=== PATIENT | male | born 1950 | race Caucasian/White ===

== ENCOUNTER 2020-05-24 08:50 | Inpatient (IN) ==
[2020-05-24] MEDS ORDERED: SODIUM CHLORIDE 0.9% 1,000 ML IV STA (09:09)
[2020-05-24 09:21] LABS: Basophils # 0.1 10*3/uL (0.0-0.2); Basophils % 0.7 % (0.0-0.8); Eosinophils % 0.3 % (0.00-10.9); Hematocrit 48.4 VOL% (42.0-52.0); Hemoglobin 16.8 GM/DL (14.0-18.0); Immature Granulocytes % 0.4 %; Immature Granulocytes Absolute 0.04 #; Lymphocytes # 2.7 10*3/uL (1.4-4.0); Lymphocytes % 23.8 % (21.2-54.2); Mean Corpuscular HGB Conc 34.7 GM/DL (32-36); Mean Corpuscular Volume 89.6 FL (87-102); Mean Platelet Volume 11.3 FL (9.6-12.0); Monocytes % 5.6 % (1.7-12.7); Neutrophils % 69.2 % (38.7-73.9); Platelet Count 167 T/CUMM (130-400); Red Cell Distribution Width 13.4 % (9.3-17.3); White Blood Count 11.3 T/CUMM (4-12)
[2020-05-24 09:48] LABS: Apearance,Urine CLEAR (Clear); Bilirubin,Urine Negative (Negative); Blood, Urine Negative (Negative); Glucose,Urine (UA) Negative (Negative); Ketones,Urine Negative (Negative); Mucus,Urine Occasional /LPF (Occasional); Nitrite,Urine Negative (Negative); Protein,Urine Negative; RBC,Urine 3 /HPF (0-4); Urine Color Amber (Yellow); Urine Specific Gravity 1.019 (1.001-1.035)
[2020-05-24 09:53] LABS: PT Patient Result 10.6 SECS (9.8-11.9); Partial Thromboplastin Time 23.1 SECS (23.9-33.8)
[2020-05-24 09:55] LABS: Alanine Aminotransferase 97 U/L (16-61); Albumin 3.7 G/DL (3.4-5.0); Alkaline Phosphatase 55 U/L (45-117); Aspartate Amino Transferase 104 U/L (0-37); Blood Urea Nitrogen 11 MG/DL (7-18); Calcium 9.3 MG/DL (8.5-10.1); Estimated Glom Filtration Rate 111 ML/MIN; Glucose 130 MG/DL (74-106); Total Protein 8.3 G/DL (6.4-8.3)
[2020-05-24] MEDS ORDERED: ALTEPLASE IV ONE ×2 (10:07)
[2020-05-24] MEDS ORDERED: LABETALOL 20 MG/4 ML SYRINGE IV PRN (12:14)
[2020-05-24] MEDS ORDERED: niCARdipine INJ 25 MG in SODIUM CHLORIDE 0.9% 240 ML IV PRN (12:14)
[2020-05-24] MEDS ORDERED: cloNIDine 0.1 MG/24 HR PATCH TRANSDERM SCH (12:30)
[2020-05-24] MEDS: SODIUM CHLORIDE 0.9% 1,000 ML IV SCH ×2 (13:00→21:05)
[2020-05-24 14:16] LABS: Barbiturates Screen,Urine Negative (Negative); Benzodiazepines Screen,Urine Negative (Negative); Cannabinoid Screen,Urine Negative (Negative); Opiate Screen,Urine Negative (Negative); Phencyclidine Screen,Urine Negative (Negative)
[2020-05-24] MEDS: ATORVASTATIN 40 MG TABLET PO SCH (20:13)
[2020-05-25 05:17] LABS: Basophils # 0.1 10*3/uL (0.0-0.2); Basophils % 0.6 % (0.0-0.8); Eosinophils # 0.1 10*3/uL (0.0-0.87); Eosinophils % 0.3 % (0.00-10.9); Hematocrit 45.7 VOL% (42.0-52.0); Hemoglobin 15.6 GM/DL (14.0-18.0); Immature Granulocytes % 0.3 %; Immature Granulocytes Absolute 0.04 #; Lymphocytes # 5.9 10*3/uL (1.4-4.0); Lymphocytes % 41.3 % (21.2-54.2); Mean Corpuscular HGB Conc 34.1 GM/DL (32-36); Mean Corpuscular Volume 90.3 FL (87-102); Mean Platelet Volume 10.8 FL (9.6-12.0); Monocytes % 8.2 % (1.7-12.7); Neutrophils % 49.3 % (38.7-73.9); Platelet Count 172 T/CUMM (130-400); Red Blood Count 5.06 MC/CUMM (3.8-5.5); Red Cell Distribution Width 13.5 % (9.3-17.3); White Blood Count 14.4 T/CUMM (4-12)
[2020-05-25 05:38] LABS: Blood Urea Nitrogen 11 MG/DL (7-18); Calcium 8.8 MG/DL (8.5-10.1); Estimated Glom Filtration Rate 111 ML/MIN; Glucose 105 MG/DL (74-106); Osmolality,Calculated 275.5 MOS/KG (273-304); Troponin I < 0.015 NG/ML (0.00-0.045)
[2020-05-25] MEDS: IPRATROPIUM 500 MCG/2.5 ML NEB RESP TX SCH ×4 (07:15→19:05)
[2020-05-25] MEDS: CLOPIDOGREL 75 MG TABLET PO SCH (09:43)
[2020-05-25] MEDS: ASPIRIN EC 81 MG TABLET PO SCH (13:22)
[2020-05-25 14:07] LABS: Risk Ratio 7.66; VLDL CHOLESTEROL 24.8 MG/DL
[2020-05-25 14:14] LABS: Thyroid Stimulating Hormone 3.14 uIU/ml (0.358-3.74)
[2020-05-25] MEDS: amLODIPine 5 MG TABLET PO SCH (16:22)
[2020-05-25] MEDS: SODIUM CHLORIDE 0.9% 1,000 ML IV SCH (16:22)
[2020-05-25] MEDS: ATORVASTATIN 40 MG TABLET PO SCH (20:31)
[2020-05-26 04:57] LABS: Basophils # 0.1 10*3/uL (0.0-0.2); Basophils % 0.8 % (0.0-0.8); Eosinophils # 0.2 10*3/uL (0.0-0.87); Eosinophils % 1.4 % (0.00-10.9); Hematocrit 40.9 VOL% (42.0-52.0); Hemoglobin 14.1 GM/DL (14.0-18.0); Immature Granulocytes % 0.3 %; Immature Granulocytes Absolute 0.03 #; Lymphocytes # 4.4 10*3/uL (1.4-4.0); Lymphocytes % 41.9 % (21.2-54.2); Mean Corpuscular HGB Conc 34.5 GM/DL (32-36); Mean Corpuscular Volume 91.3 FL (87-102); Mean Platelet Volume 11.1 FL (9.6-12.0); Monocytes % 9.3 % (1.7-12.7); Neutrophils % 46.3 % (38.7-73.9); Platelet Count 159 T/CUMM (130-400); Red Blood Count 4.48 MC/CUMM (3.8-5.5); Red Cell Distribution Width 13.2 % (9.3-17.3); White Blood Count 10.6 T/CUMM (4-12)
[2020-05-26 05:13] LABS: Calcium 8.2 MG/DL (8.5-10.1); Osmolality,Calculated 279.3 MOS/KG (273-304)
[2020-05-26 05:27] LABS: Atypical Lymphocytes Few; Eosinophils 3 % (0-10); Hypochromasia Slight; Lymphocytes 36 % (20-55); Segmented Neutrophils 56 % (50-85); Total Cells Counted 100
[2020-05-26 05:28] LABS: Microcytosis Slight; Platelet Estimate Adequate
[2020-05-26] MEDS: IPRATROPIUM 500 MCG/2.5 ML NEB RESP TX SCH ×4 (07:35→19:18)
[2020-05-26] MEDS: CLOPIDOGREL 75 MG TABLET PO SCH (10:16)
[2020-05-26] MEDS: amLODIPine 5 MG TABLET PO SCH (10:16)
[2020-05-26] MEDS: ASPIRIN EC 81 MG TABLET PO SCH (13:45)
[2020-05-26] MEDS: APIXABAN 2.5 MG TABLET PO SCH (20:18)
[2020-05-26] MEDS: ATORVASTATIN 40 MG TABLET PO SCH (20:18)
[2020-05-27 05:17] VITALS: BP 143/88
[2020-05-27 05:38] LABS: Basophils # 0.1 10*3/uL (0.0-0.2); Basophils % 0.8 % (0.0-0.8); Eosinophils # 0.2 10*3/uL (0.0-0.87); Eosinophils % 2.5 % (0.00-10.9); Hematocrit 42.3 VOL% (42.0-52.0); Hemoglobin 14.7 GM/DL (14.0-18.0); Immature Granulocytes % 0.3 %; Immature Granulocytes Absolute 0.03 #; Lymphocytes # 3.9 10*3/uL (1.4-4.0); Lymphocytes % 44.8 % (21.2-54.2); Mean Corpuscular HGB Conc 34.8 GM/DL (32-36); Mean Corpuscular Volume 90.6 FL (87-102); Mean Platelet Volume 11.4 FL (9.6-12.0); Monocytes % 8.8 % (1.7-12.7); Neutrophils % 42.8 % (38.7-73.9); Platelet Count 154 T/CUMM (130-400); Red Blood Count 4.67 MC/CUMM (3.8-5.5); Red Cell Distribution Width 13.2 % (9.3-17.3); White Blood Count 8.8 T/CUMM (4-12)
[2020-05-27 05:50] LABS: Calcium 8.5 MG/DL (8.5-10.1); Osmolality,Calculated 273.7 MOS/KG (273-304)
[2020-05-27] MEDS: IPRATROPIUM 500 MCG/2.5 ML NEB RESP TX SCH ×2 (07:05→11:46)
[2020-05-27] MEDS: amLODIPine 5 MG TABLET PO SCH (08:42)
[2020-05-27] MEDS: APIXABAN 2.5 MG TABLET PO SCH (08:42)
== END 2020-05-27 12:08 | disposition home or self-care (01) | DRG 62 ==
LOC: EDUNIT# → EDBD → N.ED 08:50 → N.EDINP 12:13 → SUATTDRO 12:13 → N.EDINP 05-25 13:18 → N.TELEN 05-25 13:23
PROVIDERS: ADMIT Internal Medicine; ATTEND Internal Medicine Geriatric Medicine